=== PATIENT | male | born 1970 | race Caucasian/White ===

== ENCOUNTER → 2020-02-05 | Outpatient (CLI) | payer BC ==
[~2020-02-05] VITALS: Ht 190.5 cm; Wt 134.7 kg
[~2020-02-05] MED LIST: ASPIR 8181 M1 PO; CRESTOR20 MG PO; EDARBYCLOR 40-1 EACH PO
[2020-02-05 07:44] VITALS: BP 137/80
--- NOTE | 2020-02-05 10:04 | CATHLAB ---
[facility] [place] [address] INVASIVE PROCEDURE REPORT Name: PADMINI WALSH Room #: [facility] [place] [facility].#: [id number] Admission: 02/05/20 Attend Phys: Rodney Diaz MD, Discharge: Date of : 70 Report #: [id number] REPORT FOR: cc: FAM - No family physician/PCP FAM - No family physician/PCP Rodney Diaz MD [facility] ~ APPROVED REPORT Study performed: 02/05/2020 08:52:16 Patient Details Patient Status: Out-Patient Room #: The patient is a 49 year-old male Event Personnel Rodney Diaz Planning Director, Suzi Roberto RTR, COMMODITY ANALYST Monitor, Autumn Li RN, Holly Palacios RTR Scrub Procedures Performed Art Access - R femoral artery* Left Heart Cath w/or w/o Coronaries [id number] [facility] [id number] Initial Mod Sed Same Phys/QHP Gr5y [id number] Hemostasis w/ Mynx Indication Positive stress test Procedure Narrative The Right Groin^ was infiltrated with 1% Lidocaine subcutaneous anesthesia. A PINNACLE 6FR Sheath #[id number] sheath was inserted into the RFA^. Coronary angiography was performed using coronary diagnostic catheters. The right coronary system was accessed and visualized with a JR4 catheter. The left coronary system was accessed and visualized with a JL4 catheter. The left ventricle was accessed and visualized with a ANGLED PIGTAIL catheter. Left ventricular/Aortic Valve gradient assessed via catheter pullback. Left ventriculogram was performed in 30 degree projection. Closure device was deployed with a 6 Fr MYNXGRIP 6/7F #[id number]. The patient tolerated the procedure well and there were no complications associated with the procedure. There was no hematoma. Intraoperative Conscious Sedation Sedation start time: 08:53 Case end Time: 09:16 [facility] [place] [address] INVASIVE PROCEDURE REPORT Name: PADMINI WALSH Room #: [facility]#: [id number] Admission: 02/05/20 Attend Phys: Rodney Diaz, Discharge: Date of : 70 Report #: [id number] Fentanyl 100 mcg Versed 2.0 mg Fluoro Time: 1.52 minutes Dose: DAP 5152.20 cGycm2 562 mGy Contrast Type and Amount: Omnipaque 105 ml Coronary Angiography The patient's coronary anatomy is right dominant. Diagnostic Cath Left Main Mild distal left main plaquing (10-20%) LAD Widely patent proximal LAD stent. Mild scattered LAD plaquing Diagonal 1 Large bifurcating diagonal branch, angiographically normal Circumflex Large codominant right coronary OM1 Large single marginal branch with 20 to 30% proximal plaquing Right Coronary Dominant right coronary with mild 10 to 20% proximal plaquing R PDA Large posterior descending branch, angiographically normal RPLV Large posterior lateral branch, angiographically normal Left Ventriculography The left ventricle is normal in size with normal contractility. The left ventricular ejection fraction is estimated to be 60-65%. Left ventricular wall motion abnormalities are not present. There is no mitral insufficiency. Hemodynamics The aortic pressure is 126/80 mmHg with a mean of 104 mmHg. The left ventricular pressure is 126/15 mmHg with a mean of mmHg. The left ventricular end diastolic pressure is 29 mmHg. Conclusion 1. Normal global and regional left ventricular systolic function. Ejection fraction 65%. 2. Mild distal left main plaquing (10-20%) 3. Widely patent proximal LAD stent 4. Mild circumflex and right coronary artery plaquing. Right coronary dominant circulation Recommendations [facility] [address] [place] [address] INVASIVE PROCEDURE REPORT Name: PADMINI WALSH Room #: [facility]#: [id number] Admission: 02/05/20 Attend Phys: Rodney Diaz, Discharge: Date of : 70 Report #: [id number] Smoking Cessation Aggressive Medical Therapy <ELECTRONICALLY SIGNED> By: Rodney Diaz MD, [facility] 02/05/201002 02 02 Rodney Diaz MD, FACC /INF
== END | disposition home or self-care (01) ==
LOC: CATH 02-04 02:22
PROVIDERS: ATTEND Internal Medicine
DX: R94.39 Abnormal result of other cardiovascular function study (principal); I25.10 Atherosclerotic heart disease of native coronary artery without angina pectoris; I11.0 Hypertensive heart disease with heart failure; I50.32 Chronic diastolic (congestive) heart failure; I25.2 Old myocardial infarction; E78.5 Hyperlipidemia, unspecified; G47.30 Sleep apnea, unspecified; F17.210 Nicotine dependence, cigarettes, uncomplicated; E66.09 Other obesity due to excess calories; Z98.890 Other specified postprocedural states; Z79.899 Other long term (current) drug therapy; Z88.8 Allergy status to other drugs, medicaments and biological substances; Z82.49 Family history of ischemic heart disease and other diseases of the circulatory system